=== PATIENT | female | born 2005 | race Caucasian/White ===

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

== ENCOUNTER 2025-08-12 14:27 | Emergency (ER) | payer MEDICAID ==
[2025-08-12 14:46] VITALS: BP 146/91; PULSE 92
[2025-08-12 15:08] LABS: APPEARANCE,URINE SLIGHTLY CLOUDY (CLEAR); GLUCOSE,URINE NEGATIVE (NEGATIVE); OCCULT BLOOD,URINE NEGATIVE (NEGATIVE)
== END 2025-08-12 16:13 | disposition home or self-care (01) ==
LOC: JP.ED 14:27
DX: M54.50 Low back pain, unspecified (principal); Z79.899 Other long term (current) drug therapy
CPT/HCPCS: 81003; 81025; 99284